=== PATIENT | male | born 1950 | race Caucasian/White ===

== ENCOUNTER → 2017-09-16 | Outpatient (CLI) | payer OTHER ==
[~2017-09-16] MED LIST: ASPI325 PO; Flecainide Ace150 MG PO; HYDCHL12.5 PO; LOSA50 PO; METO25 PO
== END | disposition home or self-care (01) ==
LOC: LAB SHORT 10:02 → PLD 10:02
DX: L57.0 Actinic keratosis (principal)
CPT/HCPCS: 88305

== ENCOUNTER 2019-03-30 08:37 | Day surgery (SDC) | payer OTHER ==
[~2019-03-30] VITALS: Ht 185.4 cm; Wt 81.0 kg
[~2019-03-30 08:37] MED LIST changes: +AMLO5 PO; +ASPI325EC PO; +FLECAINIDE ACE150 MG PO; +LOSARTAN-HCTZ1 EACH PO
--- NOTE | 2019-03-30 11:07 | NUR ---
03/30/19 1107 Korina Snow (Catherine CECAL POLYPS X2 REMOVED BUT UNABLE TO RETRIEVE; DR. MUNOZ.
== END 2019-03-30 11:07 | disposition home or self-care (01) ==
LOC: ORSCSDS 08:37
PROVIDERS: Internal Medicine Gastroenterology
PROC: 0DBH8ZX Excision of Cecum, Via Natural or Artificial Opening Endoscopic, Diagnostic (ICD-10-PCS; principal; 2019-03-30 10:00)
PROC: 0DBP8ZX Excision of Rectum, Via Natural or Artificial Opening Endoscopic, Diagnostic (ICD-10-PCS; principal; 2019-03-30 10:00)
DX: Z12.11 Encounter for screening for malignant neoplasm of colon (principal); K57.30 Diverticulosis of large intestine without perforation or abscess without bleeding; K62.1 Rectal polyp; D37.4 Neoplasm of uncertain behavior of colon; I10 Essential (primary) hypertension; I48.91 Unspecified atrial fibrillation; Z79.82 Long term (current) use of aspirin; Z79.899 Other long term (current) drug therapy
CPT/HCPCS: 86803; 88305; J2704; J7120